=== PATIENT | male | born 1955 | race Caucasian/White ===

== ENCOUNTER 2018-09-17 14:37 | Emergency (ER) | payer OTHER ==
[2018-09-17 15:13] VITALS: BP 153/90; PULSE 20; TEMP 98.9; BMI 31.6
[2018-09-17 15:26] LABS: BASO % 0.7 % (0-2.0); EOS % 1.2 % (0-4.5); HEMATOCRIT 46.7 % (35.4-49); HEMOGLOBIN 15.8 GM/dL (11.7-16.9); LYMPH % 19.7 % (8-40); MCH 28.7 pg (25.7-33.7); MCHC 33.8 g/dl (32.0-35.9); MEAN CELL VOLUME 85.1 fl (80-96); MEAN PLT VOLUME 8.7 fl (7.5-11.1); MONO % 6.5 % (3.8-10.2); NEUT % 71.9 % (42.8-82.8); PLATELET COUNT 185 K/MM3 (134-434); RBC 5.49 M/mm3 (4.00-5.60); RDW 13.4 % (11.9-15.9); WHITE BLOOD COUNT 7.8 K/mm3 (4.0-10.0)
[2018-09-17 15:49] LABS: INR 1.04 (0.83-1.09); PROTHROMBIN TIME (PATIENT) 12.3 SEC (9.7-13.0)
[2018-09-17 15:52] LABS: ACTIVATED PTT 27.3 SECONDS (25.2-36.5)
[2018-09-17] MEDS ORDERED: morphine CARPU-JECT 4 MG/1 ML DISP.SYRIN IVPUSH ONE (15:55)
[2018-09-17] MEDS ORDERED: morphine SULFATE 4 MG/ML VIAL ONE (15:58)
[2018-09-17 16:00] LABS: ALBUMIN 4.3 g/dl (3.4-5.0); ALK PHOS 60 U/L (45-117); ANION GAP 10 MMOL/L (8-16); BILIRUBIN,TOTAL 0.7 mg/dL (0.2-1); BLOOD UREA NITROGEN 21 mg/dL (7-18); CALCIUM 8.7 mg/dL (8.5-10.1); CHLORIDE 103 mmol/L (98-107); CO2 29 mmol/L (21-32); CREATININE 0.9 mg/dL (0.55-1.3); GLUCOSE,RANDOM 90 mg/dL (74-106); POTASSIUM 3.6 mmol/L (3.5-5.1); SGOT/AST 18 U/L (15-37); SGPT/ALT 46 U/L (13-61); SODIUM 142 mmol/L (136-145); TOT PROT 7.2 g/dl (6.4-8.2)
[2018-09-17] MEDS ORDERED: BACITRACIN 15 GM TUBE TOPICAL OINTMENT TP ONE (16:05)
[2018-09-17] MEDS ORDERED: BACITRACIN 0.9 GM PACKET ONE (16:06)
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
--- NOTE | 2018-09-17 21:40 | PDOC ---
*Physical Exam - Vital Signs Last Vital Signs Temp Pulse Resp BP Pulse Ox 98.9 F 20 L 90 H 153/90 98 09/17/18 14:40 09/17/18 14:40 09/17/18 14:40 09/17/18 14:40 09/17/18 14:40 - Physical Exam Comments: 09/17/18 21:40 63-year-old male with traumatic left fibula fracture. CT of ankle reveals no talar or calcaneal involvement. Patient splinted. Neurovascularly intact post splinting. Will discharge with pain meds, nonweightbearing and orthopedic follow -up in 12 hours. ED Treatment Course - LABORATORY CBC & Chemistry Diagram: 09/17/18 15:13 09/17/18 15:13 - ADDITIONAL ORDERS Additional order review: Laboratory Results 09/17/18 09/17/18 09/17/18 15:13 15:13 15:13 PT with INR 12.30 INR 1.04 PTT (Actin FS) 27.3 Sodium 142 Potassium 3.6 Chloride 103 Carbon Dioxide 29 Anion Gap 10 BUN 21 H Creatinine 0.9 Creat Clearance w eGFR > 60 Random Glucose 90 Calcium 8.7 Total Bilirubin 0.7 AST 18 ALT 46 Alkaline Phosphatase 60 Total Protein 7.2 Albumin 4.3 Blood Type O POSITIVE Antibody Screen Negative 09/17/18 15:13 RBC 5.49 MCV 85.1 MCHC 33.8 RDW 13.4 MPV 8.7 Neutrophils % 71.9 Lymphocytes % 19.7 Monocytes % 6.5 Eosinophils % 1.2 Basophils % 0.7 - Medications Given in the ED: ED Medications Discontinued Medications Generic Name Dose Route Start Last Admin Trade Name Giovanna PRN Reason Stop Dose Admin Bacitracin 1 applic 09/17/18 16:05 09/17/18 16:10 Bacitracin - TP 09/17/18 16:06 1 applic ONCE ONE Administration Morphine Sulfate 4 mg 09/17/18 15:55 09/17/18 16:04 Morphine Injection - IVPUSH 09/17/18 15:56 4 mg ONCE ONE Administration Oxycodone/Acetaminophen 1 combo 09/17/18 17:06 09/17/18 17:20 Percocet 5/325 - PO 09/17/18 17:07 1 combo ONCE ONE Administration *DC/Admit/Observation/Transfer Diagnosis at time of Disposition: Fracture of distal fibula Qualifiers: Encounter type: initial encounter Fracture type: closed Fracture morphology: other fracture Laterality: left Qualified Code(s): S82.832A - Other fracture of upper and lower end of left fibula, initial encounter for closed fracture - Discharge Dispostion Disposition: HOME Condition at time of disposition: Good - Prescriptions Prescriptions: Ibuprofen 600 mg PO TID #15 tablet Oxycodone HCl/Acetaminophen [Percocet 5-325 mg Tablet] 1 tab PO Q6H #10 tablet MDD 3 - Referrals Referrals: Nazario Robles MD [Staff Physician] - ON STAFF,NOT [Primary Care Provider] - Easton Rice MD [Staff Physician] - - Patient Instructions Printed Discharge Instructions: DI for Ankle Fracture, How to Take Care of Your Splint Additional Instructions: You were seen here today for evaluation of your ankle. You have a fracture of the distal fibula. It is not displaced. The orthopedist recommended a splint and wants to follow up with you in one week. You have been placed in a splint. Please try to stay off your left foot. Keep your foot elevated at rest. You can apply ice as needed. Keep the splint clean and dry. Please see Dr. Robles or Dwayne in his office for follow up. [address] [place] [address] Come back to the ED if pain gets worse, you notice more swelling, you have numbness in your toes, you are unable to move your toes at all, skin looks pale or if any new concerning symptom develops. Thank you - Post Discharge Activity
== END 2018-09-17 21:54 | disposition home or self-care (01) ==
LOC: JER 14:37
PROC: 3E033NZ Introduction of Analgesics, Hypnotics, Sedatives into Peripheral Vein, Percutaneous Approach (ICD-10-PCS; principal; 2018-09-17)
DX: S82.832A Other fracture of upper and lower end of left fibula, initial encounter for closed fracture (principal); V03.00XA Pedestrian on foot injured in collision with car, pick-up truck or van in nontraffic accident, initial encounter; Y93.89 Activity, other specified; Y92.59 Other trade areas as the place of occurrence of the external cause; Y99.0 Civilian activity done for income or pay
CPT/HCPCS: 36415; 73610-TC-LT-FY; 73630-TC-LT; 73700-TC-RT; 80053; 85025; 85610; 85730; 86850; 86900; 86901; 99283-25